=== PATIENT | female | born 1975 | race Caucasian/White ===

== ENCOUNTER 2024-04-25 11:33 | Emergency (ER) | payer BC, SELFPAY ==
[2024-04-25 11:45] VITALS: BP 123/85; PULSE 67; RESP 16; TEMP 37.2; O2SAT 96; BMI 35.6
--- NOTE | 2024-04-25 13:09 | CRLHL7_ITS ---
For Patients: As a result of the Century Cures Act, medical imaging exams and procedure reports are released immediately into your electronic medical record. You may view this report before your referring provider. If you have questions, please contact your health care provider. INDICATION: Leg pain, redness and swelling. TECHNIQUE: Ultrasound venous duplex lower left extremity. Compression venous exam was performed using regalado-scale, color Doppler, and spectral Doppler analysis. COMPARISON: None available. FINDINGS: Deep veins: Sonographic imaging demonstrates the left common femoral, deep femoral, superficial femoral, popliteal, posterior tibial, peroneal and the contralateral right common femoral veins to be fully compressible with normal color Doppler blood flow. Superficial veins: Visualized portions of the greater saphenous vein are fully compressible. There is a varicose vein arising from the greater saphenous vein in the region the medial/posterior proximal calf that demonstrates a noncompressible thrombus over a length of approximately 4.4 cm. IMPRESSION: 1. No evidence of lower extremity deep venous thrombosis. 2. Thrombosed varicose vein arising from the left greater saphenous vein in the region of the medial/posterior proximal calf. Dictated by Agnes Santiago MD @ 04/25/2024 2:17:54 PM (Electronically Signed)
--- NOTE | 2024-04-25 13:10 | ED_ITS ---
HPI - General Adult General Chief complaint: Extremity Pain/Injury, Lower Stated complaint: c/o blood clot LT leg sent from Time Seen by Provider: 04/25/24 12:30 History of Present Illness HPI narrative: This 48-year-old female comes in with pain, redness, and swelling in the left lower extremity just below her knee in the region of her calf. She does have varicose veins but has not had any treatment to these. She does not report any symptoms in her left upper leg and denies having any shortness of breath or chest pain. She does not have any previous history of blood clots. She did present urgent care and was sent here for ultrasound assessment. Related Data Home Medications ?Medication ?Instructions ?Recorded ?Confirmed cetirizine 10 mg capsule (Zyrtec) 10 mg PO QDAY PRN 04/13/23 04/25/24 venlafaxine 37.5 mg 37.5 mg PO DAILY 04/13/23 04/25/24 capsule,extended release 24 hr Previous Rx's ?Medication ?Instructions ?Recorded apixaban 5 mg (74 tabs) tablets in See Rx Instructions PO .COMPLEX 04/25/24 a dose pack (Talkwheel DVT-PE Treat #74 ea 30D Start) Allergies Allergy/AdvReac Type Severity Reaction Status Date / Time lactose AdvReac Verified 04/25/24 11:49 seasonal Allergy Uncoded 04/25/24 10:35 Review of Systems Status of ROS: Reports: 10 or more systems reviewed and unremarkable except as noted in History and below Narrative: Constitutional: No fevers, no weight gain or loss. Eyes: No discharge. No vision changes. HENT: No congestion, no sore throat, no ear pain. Cardiovascular: No chest pain, no palpitations. Respiratory: No shortness of breath, no wheezes, no cough. Gastrointestinal: No abdominal pain, no vomiting, no diarrhea. Genitourinary: No dysuria, no hematuria. Musculoskeletal: Normal range of motion. Skin: No rashes, no pruritis. Neurological: No dizziness, weakness, sensory change, speech change. Endo/Heme/Allergies: No bruising or bleeding. No polydipsia. Pysch: no suicidality, no anxiety, no insomnia. All other systems reviewed and are negative. PFSH PFSH Social History Smoking Status: Never smoker Do you use any of these nicotine containing products: None How often do you have a drink containing alcohol: 2-4 times a month AUDIT-C Alcohol total score: 2 Non-prescribed substance use: denies use Exam Narrative: Exam Narrative: Constitutional: Well-developed, well-nourished, no acute distress. HEENT: Normocephalic, atraumatic. Neck: Normal range of motion. Nontender. Supple. Heart: Regular. No murmurs. Normal rate. Intact distal pulses. Lungs: Clear to auscultation. No chest discomfort. No wheezes, rhonchi, or rales. Abdomen: Normal bowel sounds. Nontender. No rebound tenderness. Genitalia: Deferred. Back: No midline tenderness. Normal range of motion. Extremities: Normal range of motion. No injury. Left lower extremity has an area of increased warmth and swelling with redness which is about 10 cm in diameter in occurring just below her knee on the medial aspect of her calf. Skin: Intact. No rash. Warm. No erythema or pallor. Neurologic: No altered sensation. No weakness. Alert and oriented. Psychiatric: No suicidality. No anxiety or depression. No insomnia. Nursing notes and vitals signs are reviewed. Const: Vital Signs, click to edit/add: Vital Signs - 24 hr 04/25/24 11:45 Temperature 99.0 F Pulse Rate [Right Pulse Oximeter] 67 Respiratory Rate 16 Blood Pressure [Le ft Upper Arm] 123/85 Pulse Oximetry 96 Course Vital Signs Vital signs: Initial Vital Signs Temperature 99.0 F 04/25/24 11:45 Temperature Source Temporal Artery Scan 04/25/24 11:45 Pulse Rate 67 04/25/24 11:45 Respiratory Rate 16 04/25/24 11:45 Blood Pressure 123/85 04/25/24 11:45 Blood Pressure Mean 97 04/25/24 11:45 Blood Pressure Position Sitting 04/25/24 11:45 Pulse Oximetry 96 04/25/24 11:45 Vital Signs Temperature 99.0 F 04/25/24 11:45 Pulse Rate 67 04/25/24 11:45 Respiratory Rate 16 04/25/24 11:45 Blood Pressure 123/85 04/25/24 11:45 Pulse Oximetry 96 04/25/24 11:45 Temperature 99.0 F 04/25/24 11:45 Pulse Rate 67 04/25/24 11:45 Respiratory Rate 16 04/25/24 11:45 Blood Pressure 123/85 04/25/24 11:45 Pulse Oximetry 96 04/25/24 11:45 Medical Decision Making MDM Narrative Medical decision making narrative: This patient comes in for evaluation of possible blood clot in her left lower extremity. An ultrasound is obtained and does show evidence of a greater than 5 cm area of clot in the superficial veins of her left lower extremity but in addition to the size of a clotted is also very close to the deep venous mechanism. These findings do indicate need for anticoagulation. The patient does not have any chest pain or abnormal vital signs. She does not have any shortness of breath. She does not know of any pre-existing factors that increase her risk for blood clot. It seems that her varicose veins are most likely the trigger for this clotting. The patient received an oral dose of Eliquis and a prescription for the Eliquis starter pack. I advised her to follow-up with her primary physician for ongoing management. Discharge Plan Discharge Clinical Impression: Thrombosis Additional Instructions: Take medication as prescribed. Follow up with primary physician for ongoing management. Return if worsening. Prescriptions: New Eliquis DVT-PE Treat 30D Start 5 mg (74 tabs) tablets,dose pack See Rx Instructions PO .COMPLEX Qty: 74 0RF Rx Instructions: orally per package directions No Action venlafaxine 37.5 mg capsule,extended release 24hr 37.5 mg PO DAILY Zyrtec 10 mg capsule 10 mg PO QDAY PRN Follow Up/Referrals: Provider,Not a Local [Non-Staff] -
--- OUTSIDE RECORDS SUMMARY | 2024-04-25 13:16 | XMS_ITS | Clinical Summary ---
Author Organization [facility] Address [place], [place] [address] Care Team Providers Care Chair Maker Name Role Phone Aishwarya Pastrana MD Primary Care Prov ider Allergies Active Allergy Reactions Criticality Noted Date Comments Lactose GI Upset 01/16/2022 Medications Medication Sig Dispensed Refills Start Date End Date Status cetirizine (ZYRTEC) 10 mg tablet Take 1 tablet by mouth once daily. 0 03/03/2013 Active venlafaxine (EFFEXOR XR) 37.5 mg Extended-Release capsuleIndications: Anxiety Take 1 Capsule (37.5 mg) by mouth once daily with a meal. 90 Capsule 4 10/27/2023 Active albuterol HFA (Ventolin HFA) 90 mcg/actuation inhalerIndications: SOB (shortness of breath) Inhale 1-2 Puffs by mouth every 4 hours if needed for Shortness Of Breath or Wheezing. HOLD until patient calls 1 Each 11 10/27/2023 Active Active Problems Problem Noted Date Diagnosed Date Acquired absence of both cervix and uterus 10/23 Overview (10/23/2022): Vaginal hysterectomy Migraine with aura and witho ut status migrainosus, not intractable 10/02/2015 Overview (10/02/2015): Vision scotoma Varicose vein of leg 10/02/2015 Overview (10/02/2015): Left leg medial started during last with son. 2003 Encounters Date Type Department Care Team Description 04/11/2024 8:10 AM CDT Office Visit [facility] [address] [place] [address] Mandy Amado PA Wrist Pain/problem 04/11/2024 Travel from Last 3 Months Immunizations Name Administration Dates Next Due COVID-19 vaccine (Hira-J&J) PF, MDV Influenza, IIV3 (Age >=3 years) 04/18/2004 Td (Age >=7 Years) 04/13/2017 Tdap 02/05/2007 Family History Medical History Relation Name Comments Good Health Daughter 1 Good Health Daughter 2 Other Father MVA age 21 Diabetes Maternal Aunt Diabetes Maternal Uncle Cancer Mother cervical/uterin e ? Migraines Mother migraine Good Health Other Migraines Sister 1 Anaid migraine 1/2 si ster Cancer Sister 2 Miranda gene positive1/ 2 sister Cancer-breast Sister 2 Miranda Migraines Sister 2 Miranda Cancer Sister 3 Lorena gene positive 1 /2 sister Cancer-breast Sister 3 Lorena Migraines Sister 3 Lorena Cancer-ovarian No Family History Relation Name Status Comments Daughter 1 Daughter 2 Father mva Maternal Aunt Maternal Uncle Mother Other Sister 1 Anaid Sister 2 Miranda Sister 3 Lorena Social History Tobacco Use Types Packs/Day Years Used Date Smoking Tobacco: Never Smokeless Tobacco: Never Tobacco Cessation:Counseling Given: Yes Alcohol Use Standard Drinks/Week Comments Yes 0.8 (1 standard drink = 0.6 oz p ure alcohol) 1 or 2 a week PHQ-2 Answer Date Recorded PHQ-2 TOTAL SCORE 0 10/27/2023 Financial Resource Strain Answer Date R ecorded Difficulty of Paying Living Expenses Not on file 06/22/2021 Difficulty of Paying Living Expenses Not on file 06/22/2021 Sex and Gender Information Value Date Recorded Sex Assigned at Not on file Gender Identity Not on file Sexual Orientation Not on file Obstetrics History Para Term AB IAB SAB Ectopic Multiple Livin g Live Births 5 3 3 Date Outcome GA Total Labor Labor/2nd/3rd Weight Sex Type Anes PTL Deirdre A1 A5 Name Clin Term Term Term Last Filed Vital Signs Vital Sign Reading Time Taken Comments Blood Pressure 106/76 04/11/2024 8:14 AM CDT Pulse 82 04/11/2024 8:14 AM CDT Temperature 36.9 ??C (98.5 ??F) 05/21/2019 10:[address] Respiratory Rate 16 04/20/2017 3:18 PM CDT Oxygen Saturation 98% 04/11/2024 8:14 AM CDT Inhaled Oxygen Concentration - - Weight 97.7 kg (215 lb 4.8 oz) 04/11/2024 8:14 A M CDT Height 166.6 cm (5' 5.59) 01/16/2022 9:29 AM CD T Body Mass Index 35.19 01/16/2022 9:29 AM CDT Plan of Treatment Health Maintenance Due Date Last Done Comments HIV for age 15-65 1989 Colonoscopy through age 75 12/20/2019 BMI (ht and wt on same day) for age 18+ 01/16/2023 01/16/2022, 09/27/2018, 04/20/2017, Additional history exists COVID-19 vaccine series ( season) 2024 04/12/2021, 09/06/2020 Influenza for age 9-49 02/21/2024 04/18/2004 Depression screening for age 12+ 10/26/2024 10/27/2023, 09/23/2023, 09/23/2023, Additional history exists Mammogram for age 45-75 11/08/2024 11/09/19 24, 09/10/2022, 11/15/2019 Lipids for age 45-75 01/16/2027 01/16/2022, 11/01/19 11 Tetanus booster 04/13/2027 04/13/2017, 02/05/2007 Tdap Completed 02/05/2007 Hepatitis C screening for age 18-79 Completed 01/16/2022 Pneumococcal series for age 6-64 Aged Out No longer eligible based on patient's age to complete this topic Procedures Procedure Name Priority Date/Time Associated Diagnosis Comments XR MAMMO SHAKEEL BILAT SCREEN Routine 11/09/2023 9:49 AM CDT Encounter for screening mammogram for malignant neoplasm of breast ANTI HCV Routine 01/16/2022 10:35 AM CDT Encounter for hepatitis C screening test for low risk patient LIPID PANEL W REFLEX MEASURED LDL Routine 01/16/2022 10:35 AM CDT Screening for lipoid disorders from Last 3 Months or Most Recently Relevant to Health Maintenance Results * XR MAMMO SHAKEEL BILAT SCREEN (11/09/2023 9:49 AM CDT) Anatomical Region Laterality Modality BREASTS, Breast Left, Breast Right Bilateral Mammography Impressions 11/09/2023 3:58 PM CDT ??There is no radiographic evidence for malignancy. ??Recommend annual mammograms. MAMMOGRAM ASSESSMENT: ??ACR 1 Negative PATIENTS: You will also receive a letter with your examination results in an easy to read format. ??If you have questions about your results, please contact your referring provider. Narrative 11/09/2023 3:58 PM CDT For Patients: As a result of the Cures Act, medical imaging exams and procedure reports are released immediately into your electronic medical record. You may view this report before your referring provider. If you have questions, please contact your health care provider. XR MAMMO SHAKEEL BILAT SCREEN [[id number]] CLINICAL HISTORY: ??This is an asymptomatic 47 y.o. patient. INDICATION FOR EXAM: Mammogram Screening. TECHNIQUE: CC & MLO views were obtained. ??This study was evaluated with the assistance of Computer-Aided Detection. Breast Tomosynthesis was used in interpretation. COMPARISON FILM: Yes 09[facility]10/22 [facility] FIND[facility]: ??The breasts are heterogeneously dense, which may obscure small masses. There are no dominant masses, suspicious micro calcifications or areas of architectural distortion. Aishwarya Pastrana MD MAMMO * (ABNORMAL) LIPID PANEL W REFLEX MEASURED LDL (01/16/2022 10:35 AM CDT) CHOLESTEROL,TOTAL 231(H) 100 - 199 mg/dL 01/16/2022 7:22 PM CDT [facility] TRIGLYCERIDES 195(H) <150 mg/dL 01/16/2022 7:22 PM CDT [facility] HDL CHOLESTEROL 51 >40 mg/dL 7:22 PM CDT [facility] NON-HDL CHOLESTEROL 180(H) <145 mg/dl 01/16/2022 7:22 PM CDT [facility] CHOL/HDL RATIO 4.53(H) <4.50 01/16/2022 7:22 PM CDT [facility] LDL CHOLESTEROL 141(H) <=130 mg/dL 01/16/2022 7:22 PM CDT [facility] VLDL CHOLESTEROL 39(H) <=30 mg/dL 01/16/2022 7:22 PM CDT [facility] PROVIDER ORDERED STATUS RANDOM 01/16/2022 7:22 PM CDT [facility] Blood BLOOD SPECIMEN / Unknown Venipuncture / Unknown 01/16/2022 10:35 AM CDT 01/16/2022 10:36 AM CDT Aishwarya Pastrana MD CHEMISTRY [facility] [address] [place] [address], [place] * ANTI HCV (01/16/2022 10:35 AM CDT) HEPATITIS C ANTIBODY Non-React noemi Non-React noemi 01/16/2022 7:38 PM CDT [facility] Comment:Antibodies to HCV no t detected; does not exclude the possibility of exposure to HCV. Blood BLOOD SPECIMEN / Unknown Venipuncture / Unknown 01/16/2022 10:35 AM CDT 01/16/2022 10:36 AM CDT Aishwarya Pastrana MD [facility] [address] [place] [address], from Last 3 Months or Most Recently Relevant to Health Maintenance Care Teams Chair Maker Relationship Specialty Start Date End Date Aishwarya Pastrana MD [address] [place] [address] PCP - General 10/27/05
[2024-04-25] MEDS: APIXABAN 5 MG TABLET 10 MG PO (14:31)
== END 2024-04-25 14:36 | disposition home or self-care (01) ==
LOC: ED 13:14
PROVIDERS: Emergency Provider Emergency Medicine Emergency Medical Services; PCP Family Medicine
DX: I82.402 Acute embolism and thrombosis of unspecified deep veins of left lower extremity (principal)
CPT/HCPCS: 93971; 99284; A9270